=== PATIENT | female | born 1985 | race Caucasian/White ===

== ENCOUNTER → 2018-03-02 | Outpatient (CLI) | payer OTHER | END | disposition home or self-care (01) | LOC: LAB 15:22 → LAB SHORT 15:22 | PROVIDERS: Obstetrics & Gynecology | DX: Z01.419 Encounter for gynecological examination (general) (routine) without abnormal findings (principal) | CPT/HCPCS: 87624; G0123 ==

== ENCOUNTER 2018-04-29 09:24 | Day surgery (SDC) | payer OTHER ==
[~2018-04-29] VITALS: Ht 170.2 cm; Wt 101.2 kg
[~2018-04-29 09:24] MED LIST: CITA20 PO; IBUP400 PO; METH40 PO; PANT40 PO
== END 2018-04-29 11:24 | disposition home or self-care (01) ==
LOC: ORSCMMR 09:24 → ORD 10:30 → ORSCMMR 10:30
PROVIDERS: Internal Medicine Gastroenterology
PROC: 0DB68ZX Excision of Stomach, Via Natural or Artificial Opening Endoscopic, Diagnostic (ICD-10-PCS; principal; 2018-04-29 10:30)
PROC: 0DB58ZX Excision of Esophagus, Via Natural or Artificial Opening Endoscopic, Diagnostic (ICD-10-PCS; principal; 2018-04-29 10:30)
PROC: 0DB98ZX Excision of Duodenum, Via Natural or Artificial Opening Endoscopic, Diagnostic (ICD-10-PCS; principal; 2018-04-29 10:30)
PROC: 0DB48ZX Excision of Esophagogastric Junction, Via Natural or Artificial Opening Endoscopic, Diagnostic (ICD-10-PCS; principal; 2018-04-29 10:30)
DX: R10.13 Epigastric pain (principal); K20.0 Eosinophilic esophagitis; F17.210 Nicotine dependence, cigarettes, uncomplicated; F15.21 Other stimulant dependence, in remission; Z79.899 Other long term (current) drug therapy
CPT/HCPCS: 88305; 88342; J2250; J7030

== ENCOUNTER 2018-06-03 13:21 | Day surgery (SDC) | payer OTHER ==
[~2018-06-03] VITALS: Ht 170.2 cm; Wt 99.2 kg
[2018-06-03] MEDS ORDERED: NICO2 (13:53)
[2018-06-03] MEDS ORDERED: LIDO5TO (13:54)
== END 2018-06-03 17:30 | disposition home or self-care (01) ==
LOC: ORSCSDS 13:21
PROVIDERS: Obstetrics & Gynecology
PROC: 0UBF4ZX Excision of Cul-de-sac, Percutaneous Endoscopic Approach, Diagnostic (ICD-10-PCS; principal; 2018-06-03 14:45)
DX: R10.2 Pelvic and perineal pain (principal); D25.9 Leiomyoma of uterus, unspecified; J44.9 Chronic obstructive pulmonary disease, unspecified; F17.210 Nicotine dependence, cigarettes, uncomplicated; F43.10 Post-traumatic stress disorder, unspecified; Z79.899 Other long term (current) drug therapy; E66.9 Obesity, unspecified; Z68.34 Body mass index [BMI] 34.0-34.9, adult
CPT/HCPCS: 88305; J1100; J1885; J2250; J2405; J2710; J3010; J7040; J7120

== ENCOUNTER 2020-05-09 18:54 | Emergency (ER) | payer OTHER ==
[~2020-05-09] VITALS: Ht 170.2 cm; Wt 90.7 kg
[~2020-05-09 18:54] MED LIST changes: +LIDO5TO; +NICO2
[2020-05-09] MEDS ORDERED: Pepcid40 MG PO (20:02)
[2020-05-09] MEDS ORDERED: Prednisone50 MG PO (20:02)
[2020-05-09] MEDS ORDERED: EPIPEN 2-P0.3 MG/0.1 IM (20:02)
[2020-05-09] MEDS ORDERED: BENADRYL25 MG PO (20:02)
== END 2020-05-09 22:39 | disposition home or self-care (01) ==
LOC: ER 18:54
DX: T63.441A Toxic effect of venom of bees, accidental (unintentional), initial encounter (principal); Z91.030 Bee allergy status; Z79.899 Other long term (current) drug therapy; F17.200 Nicotine dependence, unspecified, uncomplicated
CPT/HCPCS: 96374; 99284-25; J1100